=== PATIENT | female | born 1995 | race Two or more races ===

== ENCOUNTER → 2024-02-18 | Outpatient (CLI) | payer MEDICAID, SELFPAY ==
--- NOTE | 2024-02-18 09:45 | XR_ITS ---
Examination: MRI right foot, without contrast Date and time of exam: February 18, 2024 1008 hours INDICATIONS: Injury to the foot June 2023 with pain in the posterior ankle Achilles tendon region Technique: Multiple axial sagittal and coronal images of the right foot have been obtained with the Siemens high-resolution 1.5 Ligia MRI scanner. Images obtained include T2-weighted fat-suppressed sagittal sections, TR 3500, TE 46, T2 weighted coronal fat suppressed images, TR 3050, TE 84, T2-weighted transverse fat suppressed images, TR 3260, TE 63, proton density transverse images, TR 4720 TE 46, and T1 weighted coronal images, TR 560, TE 13. Findings: Marked thickening of the Achilles tendon at its calcaneal insertion Marrow edema consistent with bone contusion and possible nondisplaced fracture involving the posterior calcaneus Mild plantar fasciitis No Lisfranc tarsometatarsal dislocations No foreign bodies IMPRESSION: Marked thickening of the Achilles tendon at its calcaneal insertion Marrow edema consistent with bone contusion with possible microtrabecular fracture lines involving the posterior calcaneus, recommend CT scan ankle calcaneus follow-up
== END | disposition home or self-care (01) ==
PROVIDERS: PCP Family Medicine; Referring Provider Podiatrist; Visit Provider Podiatrist
DX: M76.61 Achilles tendinitis, right leg (principal); S99.921S Unspecified injury of right foot, sequela; X58.XXXS Exposure to other specified factors, sequela
CPT/HCPCS: 73718